=== PATIENT | male | born 1965 | race Caucasian/White ===

== ENCOUNTER 2017-04-01 06:37 | Observation (INO) | payer OTHER ==
[2017-04-01] MEDS ORDERED: MIDAZOLAM 2 MG/2 ML VIAL IVP ONE (06:40)
[2017-04-01] MEDS ORDERED: NS 1,000 ML IV ONE (06:40)
--- NOTE | 2017-04-01 07:02 | CPEKG ---
Heart Rate: 58 RR Interval: 1034 P-R Interval: 152 QRSD Interval: 100 QT Interval: 424 QTC Interval: 417 P [place]: 26 QRS [place]: 28 T Wave [place]: 32 EKG Severity - ABNORMAL ECG - EKG Impression: SINUS RHYTHM EKG Impression: ARTIFACT Electronically Signed By: Steffen Dalton 02-Apr-2017 07:23:31
[2017-04-01 07:16] LABS: % IMMATURE GRANULYOCYTES 0.4 % (0.0-1.1); ABSOLUTE IMMATURE GRANULOCYTES 0.02 10^3/uL (0.00-0.10); ADD DIFF? NO; ADD MORPH? NO; ADD SCAN? NO; ATYPICAL LYMPHOCYTE FLAG 0 (0-99); FRAGMENT RBC FLAG 0 (0-99); HEMATOCRIT 46.6 % (40.0-51.0); HEMOGLOBIN 15.4 g/dL (13.7-17.5); LEFT SHIFT FLG 0 (0-99); LIPEMIA HEMOLYSIS FLAG 80 (0-99); MEAN CELL VOLUME 90.7 fL (81.5-99.8); MEAN PLATELET VOLUME 10.1 fL (8.7-11.7); PLATELET CLUMPS FLAG 10 (0-99); PLATELET COUNT 210 10^3/uL (150-400); RED BLOOD CELL COUNT 5.14 10^6/uL (4.40-6.38); RED CELL DISTRIBUTION WIDTH 12.4 % (11.5-15.2)
[2017-04-01 07:26] LABS: INR 1.02 (0.83-1.16); PROTIME(PATIENT) 13.3 SEC (12.0-15.0)
[2017-04-01 07:27] LABS: APTT 29.9 SEC (23.0-38.0)
[2017-04-01] MEDS ORDERED: HEPARIN 10,000 UNIT/10 ML MDV ONE (07:30)
[2017-04-01] MEDS ORDERED: ISOPROTERENOL HCL/D5W 0.2 MG/50 ML BAG IV ONE (07:30)
[2017-04-01] MEDS ORDERED: LIDOCAINE 1% 300 MG/30 ML SDV ONE (07:30)
[2017-04-01] MEDS ORDERED: BUPIVACAINE 0.5% 30 ML SDV ONE (07:30)
[2017-04-01 07:41] LABS: ANION GAP 12 mEq/L (8-16); CALCIUM 9.4 mg/dL (8.5-10.4); CARBON DIOXIDE 26 mEq/l (22-31); CHLORIDE 104 mEq/L (97-110); CREATININE 1.1 mg/dL (0.7-1.3); GLOMERULAR FILTRATION RATE > 60; GLUCOSE 89 mg/dL (70-100); MAGNESIUM 2.2 mg/dL (1.6-2.3); POTASSIUM 4.3 mEq/L (3.5-5.2); SODIUM 142 mEq/L (134-144)
[2017-04-01] MEDS ORDERED: DEXAMETHASONE 4 MG/ML VIAL ONE (09:08)
[2017-04-01] MEDS ORDERED: fentaNYL 100 MCG/2 ML INJ ONE (09:08)
[2017-04-01] MEDS ORDERED: PROPOFOL 200 MG/20 ML VIAL ONE ×2 (09:08)
[2017-04-01] MEDS ORDERED: ROCURONIUM 50 MG/5 ML VIAL ONE ×2 (09:08→10:07)
[2017-04-01] MEDS ORDERED: PHENYLEPHRINE HCL 100 MCG/ML SYR ONE (09:55)
[2017-04-01] MEDS ORDERED: ONDANSETRON 4 MG/2 ML VIAL ONE (11:31)
[2017-04-01] MEDS ORDERED: SUGAMMADEX SODIUM 200 MG/2 ML VIAL IVP ONE (11:31)
[2017-04-01] MEDS ORDERED: ONDANSETRON 4 MG/2 ML VIAL IVP PRN (11:44)
[2017-04-01] MEDS ORDERED: OXYCODONE/APAP 5/325 TAB PO PRN (11:44)
[2017-04-01] MEDS ORDERED: ACETAMINOPHEN 325 MG TAB PO PRN (11:44)
[2017-04-01] MEDS ORDERED: DICLOFENAC SODIUM 1% 100 GM GEL TP PRN (11:45)
[2017-04-01] MEDS ORDERED: ALBUTEROL 60 PUFFS/8 GM MDI IH PRN (11:45)
[2017-04-01] MEDS ORDERED: ATROPINE SULFATE 1 MG/10 ML SYR ONE (11:48)
[2017-04-01 12:45] LABS: ANION GAP 11 mEq/L (8-16); CALCIUM 8.7 mg/dL (8.5-10.4); CARBON DIOXIDE 24 mEq/l (22-31); CHLORIDE 106 mEq/L (97-110); CREATININE 1.2 mg/dL (0.7-1.3); GLOMERULAR FILTRATION RATE > 60; GLUCOSE 124 mg/dL (70-100); MAGNESIUM 2.1 mg/dL (1.6-2.3); POTASSIUM 4.1 mEq/L (3.5-5.2); SODIUM 141 mEq/L (134-144)
[2017-04-02 05:36] LABS: % IMMATURE GRANULYOCYTES 0.3 % (0.0-1.1); ABSOLUTE IMMATURE GRANULOCYTES 0.03 10^3/uL (0.00-0.10); ADD DIFF? NO; ADD MORPH? NO; ADD SCAN? NO; ATYPICAL LYMPHOCYTE FLAG 0 (0-99); FRAGMENT RBC FLAG 0 (0-99); HEMOGLOBIN 14.4 g/dL (13.7-17.5); LEFT SHIFT FLG 0 (0-99); LIPEMIA HEMOLYSIS FLAG 80 (0-99); MEAN CELL HEMOGLOBIN CONCENTR. 32.7 g/dL (32.4-36.7); MEAN CELL VOLUME 91.7 fL (81.5-99.8); PLATELET CLUMPS FLAG 0 (0-99); PLATELET COUNT 211 10^3/uL (150-400); RED CELL DISTRIBUTION WIDTH 12.4 % (11.5-15.2)
[2017-04-02 05:47] LABS: INR 1.03 (0.83-1.16); PROTIME(PATIENT) 13.4 SEC (12.0-15.0)
[2017-04-02 05:54] LABS: ANION GAP 12 mEq/L (8-16); CALCIUM 9.3 mg/dL (8.5-10.4); CARBON DIOXIDE 27 mEq/l (22-31); CHLORIDE 103 mEq/L (97-110); CREATININE 1.2 mg/dL (0.7-1.3); GLOMERULAR FILTRATION RATE > 60; GLUCOSE 102 mg/dL (70-100); POTASSIUM 4.8 mEq/L (3.5-5.2); SODIUM 142 mEq/L (134-144)
[2017-04-02 06:14] LABS: CK-MB INTERPRETATION NEGATIVE (NEGATIVE); CREATINE KINASE-MB FRACTION 3.53 ng/mL (0-3.19)
[2017-04-02 08:29] VITALS: BP 106/67; PULSE 78; RESP 20; TEMP 99; O2SAT 89
--- NOTE | 2017-04-02 08:34 | CPEKG ---
Heart Rate: 65 RR Interval: 923 P-R Interval: 152 QRSD Interval: 88 QT Interval: 396 QTC Interval: 412 P [place]: 45 QRS [place]: 10 T Wave [place]: 36 EKG Severity - NORMAL ECG - EKG Impression: SINUS RHYTHM Electronically Signed By: Steffen Dalton 05-Apr-2017 05:27:08
[2017-04-02] MEDS ORDERED: NON-FORMULARY NEW DRUG (Omeprazole [Prilosec 20 Mg] 40 MG) PO SCH (09:00)
[2017-04-02] MEDS ORDERED: ASPIRIN 325 MG TAB PO SCH (09:00)
[2017-04-02] MEDS ORDERED: Mesalamine [Lialda] 4.8 GM PO SCH (09:00)
[2017-04-02] MEDS ORDERED: Herbals/Supplements -Info Only PO SCH (09:00)
[2017-04-02] MEDS ORDERED: PANTOPRAZOLE SODIUM 40 MG TAB PO SCH (09:00)
--- NOTE | 2017-04-02 09:49 | EPPROC ---
Electrophysiology Procedure Note: PROCEDURES PERFORMED: 59051-72 EP evaluation with RA/RV/LA pace/record, with arrhythmia induction 26352-27 EP evaluation with RA/RV pace record, insert/reposition catheter, with arrhythmia induction 58461 Intracardiac catheter ablation, SVT arrhythmogenic focus 66347 3D mapping Fluoroscopy INDICATION: This is a 51 yr old with years of palpitation and dizziness. His evaluation so far had not yielded any objective evidence of arrhythmia. However, recently he had palpitation and was noted to be in narrow complex tachycardia by healthcare provider. Hence it was decided to perform EP study with possibility of ablation. PROCEDURE: Catheters & Anesthesia: The patient arrived in the Electrophysiology Laboratory in the fasting state. The right clavicular region, right groin, and left groin area were prepped and draped in the usual sterile manner. Anesthesiologist administered general anesthesia. Appropriate non-invasive blood pressure, pulse oximetry and end- tidal CO2 monitoring was established. All catheters were placed percutaneously using the modified Seldinger technique , and advanced into position under fluoroscopic guidance. One CRD2 catheter was advanced to the His-bundle position via the right femoral vein. . One #7 Italian deflectable catheter with 10 pairs of electrodes was placed via the right femoral vein into the coronary sinus. Programmed stimulation was performed from the right atrium, right ventricle and coronary sinus (left atrium). Parahisian pacing demonstrated constant H-A interval with changing V-A intervals and stimulus-A intervals during capture and loss of capture of proximal RBB proving retrograde conduction over AV node. AVNRT was induced easily during infusion of isoproterenol 1 mcg/min. Ventricular extrastimuli delivered during tachycardia without altering antegrade His bundle activation did not advance next atrial potential, indicating that the tachycardia was not utilizing an accessory pathway for retrograde conduction. VA interval was 0 ms. Post entrainment of the tachycardia from the ventricle, there was VAHV response. Mapping of the right atrium and coronary sinus during AVNRT identified earliest atrial activation above the tendon of Mary at a level slightly posterior to the level of the His bundle, consistent with retrograde conduction over the fast AV jeyson pathway. A #8 Italian deflectable quadrapolar electrode catheter (2mm-5mm-2mm spacing) with 4 mm tip electrode and sensor for the 3D mapping Carto system was advanced to the right atrium. 3 D mapping of the inter-atrial septum and coronary sinus was performed and location of the AV node was marked. RF applications were delivered to the region between the tricuspid annulus and the coronary sinus ostium, at the level of the upper edge of the coronary sinus ostium. Radiofrequency applications were also delivered along the roof of the proximal coronary sinus. Junctional rhythm occurred during all of the RF applications.(SL3 sheath was used to deliver some of the lesions) Programmed stimulation was continued post ablation at baseline and during graded doses of isoproterenol upto 4mcg/min. Sustained AVNRT was not inducible. There were 1 echo beats. The catheters were removed. The long sheath was changed to a short 9 Fr sheath. The patient was transferred to the cardiovascular holding area in stable condition. Vascular access sheaths were removed in the holding area. There were no apparent complications. Results: SCL 898ms AVWB 340/350 TCL 360 VA during SVT 0 VA during SR 140 CONCLUSIONS AV jeyson reentrant tachycardia using the slow AV jeyson pathway for antegrade conduction and the fast AV jeyson pathway for retrograde conduction. ( Slow/fast AVNRT). Successful ablation of the slow AV jeyson pathway with elimination of 1:1 antegrade conduction over the slow AV jeyson pathway, all retrograde conduction over the slow AV jeyson pathway and the inducibility of AVNRT. No complications.
--- NOTE | 2017-04-02 10:41 | GDS ---
[f rep st] DISCHARGE SUMMARY PRIMARY SPECIAL LIBRARY LIBRARIAN: Dr. Dalton Wheeler. The patient is also under the care of Dr. Donnell Durham. DISCHARGE DIAGNOSIS: Atrioventricular jeyson reentrant tachycardia, status post ablation, on 017. HOSPITAL COURSE: For detailed H and P, please see prior dictation. Briefly, the patient is a 51-ye ar-old male, with a history of 6-7 episodes of palpitations with associated shortness of breath and presyncope. They would come on suddenly and last for approximately 10-15 minutes, and then abruptly stop. He had [address] Wheeler's office, and was noted to have an SVT at a rate of 160 b eats per minute. Unfortunately, they were unable to capture a 12-lead EKG. Ultimately, the patient had a consultation with Dr. Donnell Durham, and decided to proceed with an EP study. He was identifi ed to have an AV jeyson reentrant tachycardia, which was ablated on 04/01/[address] Donnell Durham. The procedure was uncomplicated. He was monitored on telemetry and remained in normal sinus rhythm throughout his hospitalization. His EKG the day of discharge showed normal sinus rhythm. An echoca rdiogram, preliminary results showed preserved LV function without any evidence of pericardial effus ion. The patient currently denies any significant chest discomfort, shortness of breath or groin di scomfort where access was obtained for the study. PHYSICAL EXAMINATION: GENERAL: Patient appears in no acute distress. VITAL SIGNS: Blood pressure 106/67, heart rate 78, oxygen saturation of 89% on room air, afebrile. LUNGS: Clear to auscultati on. No wheezes, rhonchi, or crackles auscultated. CARDIAC: Regular rate and rhythm without any murmurs, rubs, or gallops appreciated. EXTREMITIES: Right groin, where access was obtained for the EP study is clean, intact without any evidence of hem atoma or infection. LABORATORY: BMP within normal limits. His troponin the day following his procedure was 0.120. DISCHARGE MEDICATIONS: He will begin aspirin 325 mg daily x1 month. His remaining medications are unchanged. He will continue Prilosec 40 mg daily, Lialda 4.8 g daily, Celebrex 200 mg daily, herbal supplement daily, albuterol p.r.n., Lexapro 10 mg daily, and Voltaren gel p.r.n. PLAN: The patient is currently stable and ready for discharge home. He has been given groin precau tions. He will follow up with Dr. Donnell Duhram on April 30 at 10 a.m. as scheduled. /[id number]/MODL
--- NOTE | 2017-04-02 13:14 | ECHO ---
[id number] + + [address] : : [place] [address] : : [phone] + + Adult Echocardiographic Report + ---------+ :Name: SAVANNAH LI DStudy Date: 04/02/2017 08:43 AM : : Hospital Admission Number: [id number] Julita benjamin: 222: :: 1965 Gender: Male Height: 72 i n : :Age: 51 yrs Race: WH Weight: 220 lb : :Reason For Study: Eval LV Fx : : BSA: 2.2 met ers2 : :History: Post Ablation : + ---------+ MMode/2D Measurements \T\ Calculations IVSd: 0.93 cm LVIDd: 4.8 cm FS: 35.0 % Ao root diam: 3.5 cm LVPWd: 1.0 cm LVIDs: 3.1 cm EDV(Teich): 105.7 ml ACS: 1.9 cm ESV(Teich): 37.9 ml EF(Teich): 64.2 % Normal Measurement Values: + + :LVIDd (3.5-5.7cm) IVSd (0.6-1.1cm) LVPWd (0.6-1.1cm) Aortic Root (2.0-3.7cm)Left Atrium (1.5-4.0cm): :LV Vol(d) (76-115ml) LV Vol(s) (29-48ml) Ejec Fraction (50-65%)PV Tre (0.6- 1.2m/s) TV Tre (0.4-1.0m/s) : :MV E Tre (0.8-1.0m/s)MV A Tre (0.3-1.0m/s)LVOT Tre (0.7-1.2m/s) Asc Ao Tre ( 0.9-1.8m/s) : + + Doppler Measurements \T\ Calculations MV E max tre: Ao V2 max: LV V1 max: PA V2 max: 65.6 cm/sec 100.4 cm/sec 80.5 cm/sec 90.9 cm/sec MV A max tre: Ao max P.0 mmHg LV V1 max PG: PA max P.4 cm/sec 2.6 mmHg 3.3 mmHg MV E/A: 1.5 Left Ventricle The left ventricle is normal in size and function. There is normal left ventricular wall thickness. The left ventricular ejection fraction is normal. Ejection Fraction = 65%. The left ventricular wall motion is normal. Right Ventricle The right ventricle is normal in size and function. Atria The left atrial size is normal. Right atrial size is normal. Mitral Valve The mitral valve is normal in structure and function. There is no evidence of mitral valve prolapse. There is no mitral valve stenosis. There is no mitral regurgitation noted. Tricuspid Valve Normal tricuspid valve. No tricuspid regurgitation. Aortic Valve The aortic valve is normal in structure and function. There is no aortic stenosis. There is no aortic insufficiency. Pulmonic Valve The pulmonic valve is normal in structure and function. There is no pulmonic valvular regurgitation. Great Vessels The aortic root is normal size. Pericardium/Pleural There is no pericardial effusion. Conclusion A complete two-dimensional transthoracic echocardiogram was performed (2D, M-mode, Doppler and color flow Doppler). The left ventricle is normal in size and function. The left ventricular ejection fraction is normal. Ejection Fraction = 65%. The left ventricular wall motion is normal. The right ventricle is normal in size and function. The mitral valve is normal in structure and function. The aortic valve is normal in structure and function. There is no pericardial effusion. Final Reading Physician: Ashley Mancuso signed on 04/02/2017 01:13 PM Ordering Physician: Donnell Durham Performed By: Valdez Luna, CARL[employer]S
== END 2017-04-02 10:05 | disposition home or self-care (01) ==
LOC: FCATH 06:37 → F2W 11:44
PROVIDERS: ADMIT Internal Medicine Cardiovascular Disease; ATTEND Internal Medicine Cardiovascular Disease
PROC: 02K83ZZ Map Conduction Mechanism, Percutaneous Approach (ICD-10-PCS; principal; 2017-04-01)
PROC: 4A023FZ Measurement of Cardiac Rhythm, Percutaneous Approach (ICD-10-PCS; principal; 2017-04-01)
PROC: 02583ZZ Destruction of Conduction Mechanism, Percutaneous Approach (ICD-10-PCS; principal; 2017-04-01)
DX: I47.1 Supraventricular tachycardia (principal); F32.9 Major depressive disorder, single episode, unspecified; G47.33 Obstructive sleep apnea (adult) (pediatric); K21.9 Gastro-esophageal reflux disease without esophagitis
CPT/HCPCS: 93005; 93306; 93613; 93621; 93623; 93653; C1732; G0378; C1730; C1893; J0461; J1100; J1644; J2370; J2405; J2704; J3010

== ENCOUNTER 2018-01-03 10:26 | Emergency (ER) | payer OTHER ==
--- NOTE | 2018-01-03 11:15 | EDPHY ---
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 No paresthesia. No sensory motor deficit. Tetanus is up-to- date. This occurred while he was working. PHYSICAL EXAM (Prior to examination, patient consented to physical exam, hands were washed and my usual and customary physical exam procedures followed) 1) GENERAL: Well-developed, well-nourished, alert and oriented. Appears to be in no acute distress. 2) HEAD: Normocephalic 3) HEENT: sclera anicteric 4) LUNGS: Breathing comfortably. 5) SKIN: Dorsum of the left hand overlying the 2nd metacarpal 1.5 cm well- demarcated laceration, linear, superficial. 6) MUSCULOSKELETAL: Extensor function distally is intact with no deficits . Brisk capillary refill distally. 7) NEUROLOGIC: Full sensation two-point discrimination intact distally. Smoking Status: Never smoked Constitutional: Initial Vital Signs Temperature (C) 36.7 C 01/03/18 10:57 Heart Rate 77 01/03/18 10:57 Respiratory Rate 18 01/03/18 10:57 Blood Pressure 110/78 01/03/18 10:57 O2 Sat (%) 99 01/03/18 10:57 O2 Delivery Mode Room Air Allergies/Adverse Reactions: bupropion [From Wellbutrin] Allergy (Verified 01/03/18 10:55) Hives Home Medications: Medication Instructions Recorded Mesalamine [Lialda] 4.8 gm PO DAILY 07/07/16 Omeprazole [Prilosec 20 mg] 40 mg PO DAILY 07/07/16 celeCOXIB [Celebrex (*)] 200 mg PO DAILY 07/07/16 Albuterol [Proventil Inhaler HFA 1 - 2 puffs IH DAILY PRN 04/01/17 (*)] Escitalopram Oxalate [Lexapro 10 10 mg PO DAILY 04/01/17 MG] Herbals/Supplements -Info Only 1 ea PO DAILY 04/01/17 Remicade Inj 100 mg (*) 01/03/18 MDM/Departure - MDM Procedures: Procedure: Laceration repair. I explained the indications, risks and benefits for both laceration repair and anesthetic administration. Verbal consent was obtained from the patient. The laceration on the left hand was anesthetized using 0.5% bupivicaine without epinephrine. After anesthetic administered the patient was observed for a period of time and had no apparent adverse effects. The wound was cleaned, prepped, draped in normal sterile fashion and explored to its base. No foreign body seen, no foreign bodies palpated. There were no deep structures involved. No tendon injury was identified. The wound was repaired with 3 simple interrupted 5 O Prolene sutures. The wound repair was simple. The procedure was performed by myself. Patient has been informed that scarring will occur, although efforts have been made to minimize this. ED Course/Re-evaluation: Care of patient under supervision of secondary supervising physician Dr Dawson. - Depart Disposition: Home, Routine, Self-Care Clinical Impression: Laceration of left hand Qualifiers: Encounter type: initial encounter Foreign body presence: without foreign body Qualified Code(s): S61.412A - Laceration without foreign body of left hand, initial encounter Condition: Good Instructions: Care For Your Stitches (ED), Laceration (ED) Additional Instructions: Return to the ER if you develop redness, swelling, discharge, warmth to the wound, red streaks going up your arm, or any other symptoms that concern you. Referrals: Return, to the ER in 10 days for suture removal [Other] - As per Instructions
[2018-01-03 12:02] VITALS: BP 112/78
== END 2018-01-03 12:05 | disposition home or self-care (01) ==
PROC: 0HQGXZZ Repair Left Hand Skin, External Approach (ICD-10-PCS; principal; 2018-01-03)
DX: S61.412A Laceration without foreign body of left hand, initial encounter (principal); W26.0XXA Contact with knife, initial encounter; Y92.239 Unspecified place in hospital as the place of occurrence of the external cause; Y99.0 Civilian activity done for income or pay; Y93.89 Activity, other specified

== ENCOUNTER 2018-01-07 10:10 | Emergency (ER) | payer OTHER ==
--- NOTE | 2018-01-07 10:22 | EDPHY ---
General - History Smoking Status: Never smoked Time Seen by Provider: 01/07/18 10:15 Narrative: CHIEF COMPLAINT: Hand swelling, pain and redness HISTORY OF PRESENT ILLNESS: Patient presents with complaints of redness, pain and swelling over an area of left hand laceration. Laceration occurred on the of this month. He accidentally "stabbed" the back of his left hand with a utility knife. This was done while at work. He was seen here with wound irrigation and closure. He was discharged home with a splint. No antibiotics. No x-ray. He was doing well until yesterday, when he developed redness and swelling. This is steadily worsened. It is now severely painful. Worse with flexion extension of the fingers. No fever. No numbness or tingling. No weakness. He was evaluated at the employee health, and they sent him to our facility for higher level of care. No other associated complaints or modifying factors. Right-hand dominant REVIEW OF SYSTEMS: Ten systems reviewed and are negative unless otherwise noted in the HPI PAST MEDICAL HISTORY: Sleep apnea, ulcerative colitis, joint pain, insulin-dependent diabetes, asthma PAST SURGICAL HISTORY: No recent surgeries SOCIAL HISTORY: Nonsmoker. Lives and works here independently. FAMILY HISTORY: Noncontributory EXAMINATION General Appearance: Alert, no distress Cardiovascular: Symmetric radial pulses 2+. Brisk cap refill in the fingers left hand. Neurological: A&O, sensory symmetric, interossei strength symmetric Skin: Warm and dry. No petechiae or purpura. There is an area of cellulitis over the dorsum of the left hand measuring approximately 4 cm in diameter. No palpable fluctuance or crepitus. There is no erythema or lymphangitic changes of the forearm or wrist. Extremities: Tenderness over the dorsum of the left hand. Full flexion extension of the fingers without deficit. Painful range of motion of the fingers. Neurovascular intact distal to the area of cellulitis. Psychiatric: Mood and affect normal DIFFERENTIAL DIAGNOSES: Including but not limited to cellulitis, abscess, tenosynovitis, osteomyelitis, fracture MDM: 10:25 a.m. Secondary infection of left hand laceration. This occurred 4 days ago and he describes pain, redness and swelling that started yesterday. I do not appreciate any evidence of tendon involvement, but he does have a 4-6 cm area of infection over the dorsum of the hand. I have ordered IV placement for laboratory studies, IV antibiotics. I have ordered an x-ray. I have discussed with Dr. Arreola he agrees with this plan. He is neuro intact distally. 11:15 a.m. CBC unremarkable. Chemistry unremarkable. ESR is pending. CRP is elevated at 41.5. X-ray has been read by radiologist as radiopaque foreign bodies on the palmar aspect of the ring finger. 11:35 a.m. X-ray reveals radiopaque foreign body as above and I have evaluated the patient for this. I do not feel that is related to the laceration injury. He has no pain over these areas. These are too far from his laceration to be related. I discussed this with Dr. Arreola and reviewed the x-ray with him and he is in agreement with history I provided. 11:50 a.m. Patient re-evaluated. I showed the x-rays to him with the apparent radiopaque foreign bodies. He has no pain over these areas. He has no lacerations, redness, warmth or cellulitis over these areas. Both the patient and his spouse feel these are likely chronic of uncertain etiology. At this point he has received his IV vancomycin and he is in no acute distress. His laboratory studies are within normal limits with no leukocytosis. I do not appreciate any evidence of abscess or osteomyelitis. I do not appreciate any evidence of his extensor tendons. I do feel he is stable for discharge home with antibiotic therapy, worker's compensation follow-up in very close monitoring. He has strict instructions to return to the emergency department for any worsening at any time. He has an appointment on Wednesday morning with worker's compensation that he will keep. He is to ice and elevate the extremity today and not return to work until cleared by worker's compensation. Both the patient and his spouse are comfortable with this plan and comfortable with being discharged home at this time. SUPERVISION: Patient was independently examined, but I discussed the case with my secondary supervising physician Dr. Klever Arreola ED Precautions: Worsening pain. Erythema, edema, cyanosis, pallor, paresthesia or anesthesia. (Luther Collins) Medical Decision Making: I did not see this patient while he was in the emergency department. However his care was discussed with the PA while the patient was in the hospital. I agree with treatment plan and management (Klever Arreola) - Diagnostics Imaging Results: Imaging Impressions Hand X-Ray 01/07/18 10:22 Impression: 1. There are a couple of tiny radiopaque foreign bodies identified, as above- detailed. 2. There is no acute osseous abnormality, or periostitis. - Objective Vital Signs: Initial Vital Signs Temperature (C) 36.9 C 01/07/18 10:12 Heart Rate 76 01/07/18 10:12 Respiratory Rate 18 01/07/18 10:12 Blood Pressure 119/78 01/07/18 10:12 O2 Sat (%) 97 01/07/18 10:12 O2 Delivery Mode Room Air Allergies/Adverse Reactions: bupropion [From Wellbutrin] Allergy (Verified 01/03/18 10:55) Hives Home Medications: Medication Instructions Recorded Mesalamine [Lialda] 4.8 gm PO DAILY 07/07/16 Omeprazole [Prilosec 20 mg] 40 mg PO DAILY 07/07/16 celeCOXIB [Celebrex (*)] 200 mg PO DAILY 07/07/16 Albuterol [Proventil Inhaler HFA 1 - 2 puffs IH DAILY PRN 04/01/17 (*)] Escitalopram Oxalate [Lexapro 10 10 mg PO DAILY 04/01/17 MG] Herbals/Supplements -Info Only 1 ea PO DAILY 04/01/17 Remicade Inj 100 mg (*) 01/03/18 Doxycycline Hyclate [Vibramycin 100 mg PO BID #28 cap 01/07/18 100 MG (*)] oxyCODONE HCL/ACETAMINOPHEN 1 each PO Q4-6PRN PRN #11 tablet 01/07/18 [Percocet 5-325 mg Tablet] Laboratory Results: Laboratory Results 01/07/18 10:40 01/07/18 10:40 01/07/18 01/07/18 10:40 10:40 WBC 8.48 10^3/uL 10^3/uL (3.80-9.50) RBC 5.03 10^6/uL 10^6/uL (4.40-6.38) Hgb 15.2 g/dL g/dL (13.7-17.5) Hct 45.0 % % (40.0-51.0) MCV 89.5 fL fL (81.5-99.8) MCH 30.2 pg pg (27.9-34.1) MCHC 33.8 g/dL g/dL (32.4-36.7) RDW 13.2 % % (11.5-15.2) Plt Count 226 10^3/uL 10^3/uL (150-400) MPV 10.4 fL fL (8.7-11.7) Neut % (Auto) 62.2 % % (39.3-74.2) Lymph % (Auto) 24.8 % % (15.0-45.0) Graves % (Auto) 11.8 % % (4.5-13.0) Eos % (Auto) 0.7 % % (0.6-7.6) Baso % (Auto) 0.4 % % (0.3-1.7) Nucleat RBC Rel Count 0.0 % % (0.0-0.2) Absolute Neuts (auto) 5.28 10^3/uL 10^3/uL (1.70-6.50) Absolute Lymphs (auto) 2.10 10^3/uL 10^3/uL (1.00-3.00) Absolute Monos (auto) 1.00 10^3/uL H 10^3/uL (0.30-0.80) Absolute Eos (auto) 0.06 10^3/uL 10^3/uL (0.03-0.40) Absolute Basos (auto) 0.03 10^3/uL 10^3/uL (0.02-0.10) Absolute Nucleated RBC 0.00 10^3/uL 10^3/uL (0-0.01) Immature Gran % 0.1 % % (0.0-1.1) Immature Gran # 0.01 10^3/uL 10^3/uL (0.00-0.10) ESR 8 MM/HR MM/HR (0-20) Sodium 142 mEq/L mEq/L (135-145) Potassium 3.9 mEq/L mEq/L (3.3-5.0) Chloride 105 mEq/L mEq/L (97-110) Carbon Dioxide 25 mEq/l mEq/l (22-31) Anion Gap 12 mEq/L mEq/L (8-16) BUN 22 mg/dL mg/dL (7-23) Creatinine 1.1 mg/dL mg/dL (0.7-1.3) Estimated GFR > 60 Glucose 98 mg/dL mg/dL (70-100) Calcium 9.2 mg/dL mg/dL (8.5-10.4) C-Reactive Protein 41.5 mg/L H mg/L (<10.0) Medications Given: Discontinued Medications Sodium Chloride (Ns) 500 mls @ 0 mls/hr IV EDNOW ONE; Wide Open PRN Reason: Protocol Stop: 01/07/18 10:31 Last Admin: 01/07/18 10:52 Dose: 500 mls Vancomycin/Sodium Chloride (Vancomycin 1 Gm (Premix)) 250 mls @ 250 mls/hr IV EDNOW ONE PRN Reason: Protocol Stop: 01/07/18 11:28 Last Admin: 01/07/18 10:52 Dose: 250 mls Ibuprofen (Motrin) 600 mg PO EDNOW ONE Stop: 01/07/18 10:56 Last Admin: 01/07/18 10:57 Dose: 600 mg Departure - Departure Disposition: Home, Routine, Self-Care Clinical Impression: Cellulitis of hand excluding fingers Laceration of hand with complication Qualifiers: Encounter type: initial encounter Laterality: left Qualified Code(s): S61.412A - Laceration without foreign body of left hand, initial encounter Condition: Good Instructions: Cellulitis (ED) Additional Instructions: 1. Doxycycline twice daily for 10 days the completion 2. Pain medication as provided as needed 3. Ice and elevate the extremity for the remainder of the day 4. Worker's compensation follow-up 5. Return to emergency department immediately for any worsening or if no improvement within 24 hr Referrals: Flower Sapp MD [Primary Care Provider] - As per Instructions Physician,Emergency DeptMD [Medical Doctor] - As per Instructions (24 hr if no improvement. Sooner for any worsening) Stand Alone Forms: Work Excuse Prescriptions: Doxycycline Hyclate [Vibramycin 100 MG (*)] 100 mg PO BID #28 cap oxyCODONE HCL/ACETAMINOPHEN [Percocet 5-325 mg Tablet] 1 each PO Q4-6PRN PRN # 11 tablet PRN Reason: Pain, Breakthrough
[2018-01-07] MEDS ORDERED: VANCOMYCIN HCL/NORMAL SALINE 250 ML IV ONE (10:29)
[2018-01-07] MEDS ORDERED: NS 500 ML IV ONE (10:30)
[2018-01-07 10:45] LABS: PLATELET COUNT 226 10^3/uL (150-400)
[2018-01-07] MEDS ORDERED: IBUPROFEN 600 MG TAB PO ONE (10:55)
[2018-01-07 12:38] VITALS: BP 105/66
== END 2018-01-07 12:33 | disposition home or self-care (01) ==
DX: S61.412D Laceration without foreign body of left hand, subsequent encounter (principal); L03.114 Cellulitis of left upper limb; J45.909 Unspecified asthma, uncomplicated; E11.9 Type 2 diabetes mellitus without complications; E86.9 Volume depletion, unspecified; W26.0XXD Contact with knife, subsequent encounter
CPT/HCPCS: 96365; J3370

== ENCOUNTER 2018-01-08 15:56 | Inpatient (IN) | payer OTHER ==
[2018-01-08] MEDS ORDERED: VANCOMYCIN HCL/NORMAL SALINE 250 ML IV ONE (16:18)
--- NOTE | 2018-01-08 16:23 | EDPHY ---
H & P Stated Complaint: L hand infection progressing-here same Time Seen by Provider: 01/08/18 16:09 HPI/ROS: CHIEF COMPLAINT: "My hand infections is worse" HISTORY OF PRESENT ILLNESS: 52-year-old male history of ulcerative colitis on Remicade regimen, seen the ER 5 days ago after he sustained a work related laceration to the dorsum of his left hand using a box hinge and lock attacher. At that time his wound was irrigated and closed primarily in the ER. He returned to the ER yesterday noting erythema to the dorsum of his hand at which point he had x-ray showing no radiopaque foreign body and no osseous abnormality , given IV vancomycin and discharged with doxycycline which he has been taking as prescribed. He returns to the ER today noting that although he has been keeping the extremity elevated as directed and taking his antibiotics, he has noticed progressive, worsening erythema and edema to the hand. Denies: Fever, chills, malaise, flu-like symptoms, chest pain, abdominal pain, axillary adenopathy or pain. PRIMARY CARE PROVIDER:Worker's compensation REVIEW OF SYSTEMS: A ten point review of systems was performed and is negative with the exception of the items mentioned in the HPI PAST MEDICAL & SURGICAL HISTORY: Ulcerative colitis, immune suppressed with Remicade. No history of chronic skin infections or known history of cutaneous MRSA. SOCIAL HISTORY:Nonsmoker. 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 Appears nontoxic 2) HEAD: Normocephalic, atraumatic 3) HEENT: Pupils equal, round, reactive to light bilaterally. Sclera anicteric. 4) NECK: Full range of motion, no meningeal signs. 5) LUNGS: Clear auscultation bilaterally, no wheezes, no rhonchi, no retractions. 6) HEART: Regular rate and rhythm, no murmur, no heave, no gallop. 7) ABDOMEN: No guarding, no rebound, no focal tenderness 8) MUSCULOSKELETAL: Left upper extremity: Sutures in place. There is erythema induration the dorsal left hand with no fluctuance. Compared to the extent of erythema outlined yesterday there has been proximal migration of erythema. No epitrochlear or axillary adenopathy is noted. Fingers are unremarkable with negative kanavel sign. Pulses are brisk. Capillary refill is brisk. He is able to actively extend his digits with mild pain only. Flexion is unremarkable and normal. 9) BACK: , no visual or palpable abnormality. 10) SKIN: No rash, no petechiae. 11) Psychiatric: Patient is oriented X 3, there is no agitation. DIFFERENTIAL DIAGNOSIS: In no particular include but limited to cellulitis, necrotizing fasciitis, hand abscess, infectious tenosynovitis - Personal History Tetanus Vaccine Date: 2014 - Medical/Surgical History Hx Asthma: Yes Hx Chronic Respiratory Disease: No Hx Diabetes: No Hx Cardiac Disease: No Hx Renal Disease: No Hx Cirrhosis: No Hx Alcoholism: No Hx HIV/AIDS: No Hx Splenectomy or Spleen Trauma: No Other PMH: ulcerative colitis, joint pain,asthma,. cardiac ablation 2016 - Social History Smoking Status: Never smoked Constitutional: Initial Vital Signs Temperature (C) 37.0 C 01/08/18 16:02 Heart Rate 75 01/08/18 16:02 Respiratory Rate 16 01/08/18 16:02 Blood Pressure 120/77 01/08/18 16:02 O2 Sat (%) 97 01/08/18 16:02 O2 Delivery Mode Room Air Allergies/Adverse Reactions: bupropion [From Wellbutrin] Allergy (Verified 01/03/18 10:55) Hives Home Medications: Medication Instructions Recorded Mesalamine [Lialda] 4.8 gm PO DAILY 07/07/16 Omeprazole [Prilosec 20 mg] 40 mg PO DAILY 07/07/16 celeCOXIB [Celebrex (*)] 200 mg PO DAILY 07/07/16 Albuterol [Proventil Inhaler HFA 1 - 2 puffs IH DAILY PRN 04/01/17 (*)] Escitalopram Oxalate [Lexapro 10 10 mg PO DAILY 04/01/17 MG] Herbals/Supplements -Info Only 1 ea PO DAILY 04/01/17 Remicade Inj 100 mg (*) 01/03/18 Doxycycline Hyclate [Vibramycin 100 mg PO BID #28 cap 01/07/18 100 MG (*)] oxyCODONE HCL/ACETAMINOPHEN 1 each PO Q4-6PRN PRN #11 tablet 01/07/18 [Percocet 5-325 mg Tablet] Medical Decision Making ED Course/Re-evaluation: 4:19 p.m.: I reviewed the patient's medical records. I removed the patient's sutures at this time. There was no purulent discharge or fetid odor upon removal of the sutures. This will be allowed to heal via secondary intention . At this time I think that deep space infection, abscess to the hand, infectious tenosynovitis, is less than likely in this patient. Doubt necrotizing fasciitis at this time. Doubt compartment syndrome. Discussed case with secondary supervising physician Dr. Anshul Dawson in the ER. Recommended admission continued IV vancomycin for this immunosuppressed patient that has failed outpatient antibiotic therapy. 4:23 p.m.: Consultation with Dr. Daria Ambrose hospitalist who will admit patient. Departure - Departure Disposition: [facility] Inpatient Acute Clinical Impression: Cellulitis of left hand, History of ulcerative colitis, Immune suppressed on Remicade Condition: Fair Referrals: Flower Sapp MD [Primary Care Provider] - As per Instructions
[2018-01-08 16:38] LABS: PLATELET COUNT 208 10^3/uL (150-400)
[2018-01-08] MEDS ORDERED: ONDANSETRON 4 MG/2 ML VIAL IVP PRN (17:22)
[2018-01-08] MEDS ORDERED: oxyCODONE IR 5 MG TAB PO PRN (17:22)
[2018-01-08] MEDS ORDERED: ACETAMINOPHEN 325 MG TAB PO PRN (17:22)
[2018-01-08] MEDS ORDERED: traMADol 50 MG TAB PO PRN (17:22)
[2018-01-08] MEDS ORDERED: HYDROmorphONE/DILAUDID 1 MG/ML INJ ONE (17:27)
[2018-01-08] MEDS ORDERED: HYDROmorphONE/DILAUDID 1 MG/ML INJ IVP ONE (17:29)
--- NOTE | 2018-01-08 18:43 | GHP ---
[f rep st] HISTORY AND PHYSICAL DATE OF ADMISSION: 01/08/2018 CHIEF COMPLAINT: Worsening left hand infection. 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 He was using a zaheer x cutter and it went deep into his hand. He feels like the box stacker hit bone. He was seen in the emergency room where the wound was irrigated and closed with some sutures. He was re-seen in the ER yesterday, when he developed worsening erythema surrounding the wound. 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 Chinmay deluca was given a dose of IV vancomycin x1, and discharged on oral doxycycline. He now represents to the hospital because he is having worsening cellulitis that is extending beyond the demarcated margins. His hand is getting more swollen. The original box stacker wound sutures were removed today in the E R. There is no current purulent discharge from the wound. He is immunosuppressed on Remicade for ul cerative colitis. There has been no fever. PAST MEDICAL HISTORY: 1. Ulcerative colitis. 2. Psoriasis. 3. SVT, status post ablation. 4. Asthma. 5. NSAID-induced gastric ulcer. 6. Hemochromatosis carrier. MEDICATIONS: Please see computer record for full detailed list. ALLERGIES: Bupropion. SOCIAL HISTORY: No smoking. 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 REVIEW OF SYSTEMS: Complete review of systems obtained. Review of systems negative regarding consti tutional, HEENT, GI, pulmonary, vascular, , hematology, skin, muscular, endocrine, psych, except fo r positives and negatives as noted in HPI. FAMILY HISTORY: Positive for colon cancer. PHYSICAL EXAMINATION: GENERAL: Well-developed, well-nourished male, in no acute distress. VITAL SI GNS: Temperature 37.0, pulse 75, blood pressure 120/77, saturating 97% on room air. EYES: Normal c onjunctivae. Pupils react to light. ENT: Normal ears, nose. Hearing intact. Normal teeth. Oroph arynx moist. NECK: Trachea midline. No thyromegaly. CHEST: Normal effort. LUNGS: Clear to ausc ultation bilaterally. CARDIOVASCULAR: Regular rate and rhythm. No murmur. No lower extremity toñito a. ABDOMEN: Soft, nontender. No hepatosplenomegaly. SKIN: His left hand has extensive erythema s tarting from the original box stacker wound on the dorsum of his hand. There is no purulent discharge from the wound. Cellulitis, however, extends over the entire dorsum of the hand beyond the demarcat ed margins going a little bit down the wrist. Very swollen. Decreased range of motion at all joints . It is very tender and warm to the touch. MUSCULOSKELETAL: No cyanosis or clubbing. NEUROLOGICAL : Strength 5/5 upper and lower extremities. Cranial nerves intact. Normal sensation to light touch . PSYCH: Alert and oriented x3. Normal mood and affect. Normal judgment and insight. Normal ana ry. LABORATORY DATA: White count 7.26, hematocrit 42.8, platelets 208. Sodium 142, potassium 4.1, chlor swetha 104, bicarb 25, BUN 21, creatinine 1.2. Sedimentation rate 7. This case was discussed with Earl Parrish, emergency room provider. Since he has failed oral antibio tics, he is now being admitted for IV therapy. Medical records review: I reviewed previous medical records including records related to SVT with ab lation performed by Dr. Durham. He also had a negative cardiac catheterization performed by Dr. Guillaume wright. Hand x-ray performed yesterday does show 2 small metallic foreign bodies, however, they are not relat ed to the current injury. ASSESSMENT/PLAN: 1. Left hand cellulitis with an open wound related to a box stacker injury. Currently failing outpat ient oral antibiotics. I will start him on IV Ancef, although he did get IV vancomycin in the emerge ncy room. I think at this point, it is more consistent with a strep infection. There is no evidence of any purulence. I will consult Infectious Disease. Depending on his progress, he may need Hand S urgery consultation. He may also need an MRI, but this may be limited secondary to the metallic fore ign bodies we are seeing incidentally in his hands from previous injuries. 2. Ulcerative colitis. Chronically immunosuppressed on Remicade. 3. Non-steroidal [id number] gastric ulceration. Currently back on NSAIDs in the form of Celebrex, but seems to be tolerating it with the co-administration of omeprazole. 4. Supraventricular tachycardia, status post ablation. This appears to be stable. CODE STATUS: Full. ADMISSION STATUS: 1. Will admit to inpatient as cellulitis is severe. Anticipate greater than 2 midnights required fo r stabilization. 2. DVT prophylaxis. He is low-risk. Will ambulate early. /[id number]/MODL
[2018-01-08] MEDS: ceFAZolin 2 GM/DEXTROSE 100 ML IV SCH (21:24)
--- NOTE | 2018-01-09 04:35 | PDMN ---
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 [employer] has a work-related laceration on the dorsum of his left hand 01/03/2018 with ED visit on that date - wound was irrigated am closed with sutures, 2017 ED visit for worsening erythema surrounding the wound - xray done negative for foreign body within the current wound although incidentally noted were two foreign bodies at other parts of the left hand 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 anticipates > 2 MN LOS for ongoing med nec for eval and TX of above.
[2018-01-09] MEDS: ceFAZolin 2 GM/DEXTROSE 100 ML IV SCH (05:01)
[2018-01-09] MEDS ORDERED: MESALAMINE 4.8 GM PO SCH ×2 (09:00)
[2018-01-09] MEDS ORDERED: ESCITALOPRAM OXALATE 10 MG TAB PO SCH (09:00)
[2018-01-09] MEDS ORDERED: PANTOPRAZOLE SODIUM 40 MG TAB PO SCH (09:00)
[2018-01-09] MEDS ORDERED: NON-FORMULARY NEW DRUG (Omeprazole [Prilosec 20 Mg] 40 MG) PO SCH (09:00)
--- NOTE | 2018-01-09 10:19 | HOSPPROG ---
Hospitalist Progress Note Assessment/Plan: Patient with cellulitis of left dorsum hand r/t deep box-cutter injury sustained approximately 6 days ago. Left hand cellulitis r/t to boxing promoter laceration continues to improve. - On Ancef IV - WBC 7.2 \Dr. Traylor to consult today - Immunosuppressed r/t Remicaid for ulcerative colitis *Plan: reviewed his care with Dr Tryalor, will give a dose of Ceftriaxone x one now and then dc home on Keflex Subjective: Patient reports feeling well. Complains of periwound tenderness and decreased ROM with wrist flexion. Objective: Vital Signs Temp Pulse Resp BP Pulse Ox 36.9 C 58 L 12 106/72 95 01/09/18 07:15 01/09/18 07:15 01/09/18 07:15 01/09/18 07:15 01/09/18 07:15 Microbiology 01/08/18 17:33 Gram Stain - Final Hand - Swab - Physical Exam Constitutional: no apparent distress Eyes: PERRL Cardiovascular: regular rate and rhythym, no murmur, rub, or gallop Respiratory: no respiratory distress, no rales or rhonchi, clear to auscultation Gastrointestinal: normoactive bowel sounds Skin: warm, normal color (mild swelling of dorsum hand, including 3rd PIP), no induration, fluctuance Musculoskeletal: muscular tenderness Neurologic: AAOx3 Psychiatric: interacting appropriately ICD10 Worksheet Patient Problems: Problems Problem Status Onset Cellulitis of left hand Acute
--- NOTE | 2018-01-09 10:34 | ASMTCMCOM ---
CM Note CM Note Notes: Pt admitted with severe L hand cellulits with failed outpatient oral abx. Pt now on IV abx. ID to consult. No PT/OT ordered. Spoke with RN; pt is a & lives with his children. CM will follow. Dc plan-TBD (may need IV abx) Date Signed: 01/09/2018 10:34 AM Electronically Signed By:Ute Main RN
[2018-01-09 10:40] VITALS: BP 96/63
--- NOTE | 2018-01-09 13:08 | GCON ---
[f rep st] CONSULTATION INFECTIOUS DISEASE CONSULTATION DATE OF CONSULTATION: 01/09/2018 REASON FOR CONSULTATION: Left hand cellulitis. 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 He was managed initially at the Urgent Care and the area was sutured up. He was not given antibiotics at that time. Patient subsequently developed increasing pain and swelling on January 06 and January 07, and was evaluated for worker's comp. When Occupational Health physician evaluated him, felt his hand was infected, was unable to find an urgent evaluation by a hand surgeon and the patient was sent to the emergency room for further evaluation. The patient received a dose of IV vancomycin in the emergency room and was discharged on doxycycline. Patient reports progressive erythema while on doxycycline, even though he was taking a double dose. He returned to the emergency room yesterday , 01/08/2018, with worsening erythema and pain. The patient was found to have cellulitis up to and past his wrist and was admitted for IV antibiotics. Patient was started on IV ceftriaxone and patient states today that his erythema is "100% better." He also has significant decrease in pain. He did not have any systemic symptoms throughout the course of his illness, specifically denying fevers and chills. He denies ever having purulent discharge from the wound. Stitches were removed in the emergency room. Wound cultures and blood cultures were also collected in the emergency room and are no growth to date. PAST MEDICAL HISTORY: 1. Ulcerative colitis. 2. Psoriasis. 3. SVT, status post ablation. 4. Asthma. 5. NSAID-induced gastric ulcer. 6. Hemochromatosis carrier. MEDICATIONS: Cefazolin 2 g IV q.8 hours, Celebrex 200 mg daily, Lexapro 10 mg daily, mesalamine 4.8 g daily, Zofran as needed, oxycodone as needed, Protonix as needed, Ultram as needed. The patient did get 1 dose of vancomycin in the emergency room before admission. Vaccine: Tdap within 2 years ALLERGIES: No antibiotic allergies, just allergy to bupropion. 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 No alcohol. FAMILY HISTORY: Positive for colon cancer. REVIEW OF SYSTEMS: A complete 10-point review of systems was performed and is negative except as mentioned in the HPI. EXAM: VITAL SIGNS: Blood pressure 96/63, heart rate 65, respiratory rate 12, saturation 93% on room air, temperature 36.5. He has been afebrile throughout his hospital course. GENERAL: This is a very pleasant, healthy-appearing male lying in bed in no acute distress. HEENT: Pupils reactive bilaterally. Oropharynx: Moist mucous membranes. NECK: Supple. No lymphadenopathy. CARDIOVASCULAR: Bradycardic, regular rhythm. CHEST: Clear to auscultation bilaterally. ABDOMEN: Soft, nontender. EXTREMITIES: His left hand demonstrated normal capillary refill. 2+ radial pulses. Full range of motion of his wrist and index finger. The laceration lies over the index finger metacarpal/close to PIP joint, for which the patient has complete range of motion. There is some mild tenderness over the laceration site. No stitches in place and no fluctuance. Very, very faint erythema over that index finger metacarpal remains, but nearly all of erythema has resolved. The patient did not have lymphangitis. LABS: Creatinine 1.2. C-reactive protein 52. White count 7.2 with a normal differential, 59% neutrophils, 27% lymphocytes. Blood cultures collected 01/08 , are pending. Hand swab was collected, unclear where this was obtained, which is growing SA with prelim showing MSSA. Plain film of his hand from 01/07/2018 , was personally reviewed by me and showed no residual foreign body associated with this current injury or fracture. ASSESSMENT AND PLAN: 52-year-old male who sustained a gill box fixer injury on the and subsequently developed acute cellulitis without clinical signs of tenosynovitis or joint involvement. Tdap is up to date. The patient was initially given vancomycin and doxycycline, oral antibiotic gap would have been Streptococcus. Despite this therapy, patient's erythema, pain, worsened, and is significantly better today on cefazolin. Reviewed the pathogenesis of cellulitis with patient including typical pathogens including Streptococcus and Staphylococcus. Also low suspicion for MRSA as significant clinical response to 1st generation cephalosporin over night. Mild elevation of CRP is expected in light of this infection. Would give patient 1 dose of long-acting cephalosporin, IV Rocephin 1 g, and then transition to Keflex 500 q.i.d. for 6 more days. Recommended continue elevation. Offered patient followup in our clinic as needed, but is reasonable, due to the rapid improvement, that Occupational Health physicians can manage followup. Thank you for this consultation. /[id number]/MODL MTDD
--- NOTE | 2018-01-09 13:43 | GDS ---
[f rep st] DISCHARGE SUMMARY DISCHARGE DIAGNOSES: 1. Left hand cellulitis. 2. Immunosuppressed on Remicade for ulcerative colitis. CONSULTATION: Dr. Daly Traylor. 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 He was managed initially at Urgent Care and the area was sutured up and he was not treated with antibiotics. He subsequently developed increased pain and swelling, and on January 07 was evaluated by worker' s comp. At that time, it was recommended that he go on doxycycline. His hand continued to have some progressive erythema and he came to the emergency room and was started on IV antibiotics. During my evaluation today, his hand look markedly better. He was seen and evaluated by Dr. Traylor. The plan is for him to go on oral Keflex after receiving a dose of IV ceftriaxone. HOSPITAL COURSE: 1. Left hand cellulitis markedly improved. 2. Immunosuppressed. This is related to primary care for his ulcerative colitis stable. DISCHARGE CONDITION: Stable. Blood pressure is 106/72, heart rate of 58, respiratory rate of 12, O2 sats on 0.5 L 95%, temp is 36.9 degrees Celsius. MEDICATIONS AT DISCHARGE: Please see the EMR. DISCHARGE INSTRUCTIONS: 1. Elevate his left hand throughout the day. 2. Take the Keflex as prescribed. 3. Stop the doxycycline. 4. If he develops fever, chills, chest pain, or shortness of breath, return to the emergency room. /[id number]/MODL MTDD
--- NOTE | 2018-01-09 16:41 | ASDISCHSUM ---
Discharge Information Plan Status:Home with No Needs Medically Cleared to Leave: Discharge Date:01/09/2018 02:00 PM CM D/C Disposition:Home, Routine, Self-Care ADT D/C Disposition:Home, Routine, Self-Care Projected Discharge Date:01/09/2018 02:00 PM Transportation at D/C:Family Discharge Delay Reason: Follow-Up Date:01/09/2018 02:00 PM Discharge Slot: Final Diagnosis: Placement Information Patient Contact Information Contact Name:FANG Relationship:Mother Address:[address] City:[facility] Phone: [facility]/Zip Code:[place] [address] Email: Financial Information Financial Class:Worker's Compensation Primary Plan Desc:GIOVANYJEAN PAULCARLY MARQUEZ Primary Plan Number:[id number] Secondary Plan Desc: Secondary Plan Number: Assessment Information [facility] CM Progress Note CM Note CM Note Notes: Pt admitted with severe L hand cellulits with failed outpatient oral abx. Pt now on IV abx. ID to consult. No PT/OT ordered. Spoke with RN; pt is a & lives with his children. CM will follow. Dc plan-TBD (may need IV abx) Date Signed: 01/09/2018 10:34 AM Electronically Signed By:Ute Main RN Intervention Information
--- NOTE | 2018-01-09 16:49 | ASMTLACE ---
LACE Length of stay for Answers: 1 day current admission Acuity / Level of Answers: Yes Care: Did the patient have an inpatient admission? # of Emergency department Answers: 3-4 visits in the last 6 months Score: 7 Date Signed: 01/09/2018 04:48 PM Electronically Signed By:Ute Main RN
== END 2018-01-09 14:00 | disposition home or self-care (01) | DRG 603 ==
LOC: OBSVTOIN 16:39 → F3E 17:45
PROVIDERS: ADMIT Internal Medicine; ATTEND Internal Medicine
DX: L03.114 Cellulitis of left upper limb (principal); K51.90 Ulcerative colitis, unspecified, without complications; L40.9 Psoriasis, unspecified; J45.909 Unspecified asthma, uncomplicated; Z87.11 Personal history of peptic ulcer disease
CPT/HCPCS: J0690; J0696; J1170; J3370; L3807